=== PATIENT | male | born 1945 | race Caucasian/White ===

== ENCOUNTER 2017-07-10 02:17 | Emergency (ER) | payer OTHER ==
[~2017-07-10] VITALS: Ht 167.6 cm; Wt 82.0 kg
[2017-07-10] MEDS ORDERED: SODIUM CHLORIDE 0.9% 1,000 ML IV ONE (02:56)
[2017-07-10] MEDS ORDERED: MAGNESIUM/ALUMINUM HYDROXIDE/SIMETHICONE 30ML UDC PO STA (02:56)
[2017-07-10] MEDS ORDERED: ONDANSETRON HCL 4MG/2ML VIAL IV STA (02:56)
[2017-07-10] MEDS ORDERED: FAMOTIDINE 20MG/2ML VIAL IV STA (02:56)
[2017-07-10 03:26] LABS: BASOPHILS % 0.4 % (0.0-2.0); EOSINOPHILS % 0.1 % (0.0-5.0); HEMATOCRIT. 44.8 % (42.0-52.0); HEMOGLOBIN. 15.6 g/dL (14.0-18.0); LYMPHOCYTES % 10.7 % (20.0-50.0); MEAN CORPUSCULAR HEMOGLOBIN 31.8 pg (28.0-32.0); MEAN CORPUSCULAR VOLUME 91.5 fL (80.0-94.0); MONOCYTES % 3.6 % (2.0-8.0); NEUTROPHILS % 85.2 % (40.0-76.0); RED CELL DISTRIBUTION WIDTH 13.9 % (11.6-14.6)
[2017-07-10 03:29] LABS: PROTHROMBIN TIME 9.9 sec (9.4-11.6)
[2017-07-10 03:38] LABS: CARBON DIOXIDE 27 mEq/L (21-32); CHLORIDE 100 mEq/L (98-107); TROPONIN I < 0.02 ng/mL (0.00-0.04)
[2017-07-10 03:49] LABS: CLARITY URINE CLEAR (CLEAR); COLOR URINE YELLOW (YELLOW); GLUCOSE URINE NEGATIVE (NEGATIVE); KETONES URINE NEGATIVE (NEGATIVE); LEUKOCYTE ESTERASE URINE TRACE (NEGATIVE); NITRITE URINE NEGATIVE (NEGATIVE); OCCULT BLOOD URINE NEGATIVE (NEGATIVE); PH URINE 6.5 (4.5-8.0); PROTEIN URINE NEGATIVE (NEGATIVE); UROBILINOGEN URINE 0.2 E.U./dL (0.2-1.0)
[2017-07-10 04:04] LABS: MEAN PLATELET VOLUME 10.3 fl (7.4-10.4)
[2017-07-10 04:05] LABS: PLATELET 206 x1000/uL (130-400)
[2017-07-10] MEDS ORDERED: CEFTRIAXONE 1 G PREMIX 50 ML IV ONE (05:45)
[2017-07-10 06:50] VITALS: BP 164/73
== END 2017-07-10 06:59 | disposition home or self-care (01) ==
LOC: ER 02:17
DX: N39.0 Urinary tract infection, site not specified (principal); R10.9 Unspecified abdominal pain; K76.0 Fatty (change of) liver, not elsewhere classified; K80.20 Calculus of gallbladder without cholecystitis without obstruction; I10 Essential (primary) hypertension
CPT/HCPCS: 36415; 71010; 76705; 80053; 81001; 83690; 84484; 85025; 85610; 93005; 96361; 96365; 96375; 99285; J0696; J2405; J3490; J7030

== ENCOUNTER 2017-12-17 11:32 | Inpatient (IN) | payer OTHER ==
[~2017-12-17] VITALS: Ht 167.6 cm; Wt 81.6 kg
[2017-12-17 12:24] LABS: CHLORIDE 103 mEq/L (98-107)
[2017-12-17 12:26] LABS: PROTHROMBIN TIME 10.2 sec (9.4-11.6)
[2017-12-17 12:28] LABS: BASOPHILS % 0.3 % (0.0-2.0); EOSINOPHILS % 0.4 % (0.0-5.0); HEMATOCRIT. 49.1 % (42.0-52.0); HEMOGLOBIN. 16.7 g/dL (14.0-18.0); LYMPHOCYTES % 13.3 % (20.0-50.0); MEAN CORPUSCULAR HEMOGLOBIN 31.4 pg (28.0-32.0); MEAN CORPUSCULAR VOLUME 92.2 fL (80.0-94.0); MEAN PLATELET VOLUME 10.4 fl (7.4-10.4); MONOCYTES % 4.2 % (2.0-8.0); NEUTROPHILS % 81.8 % (40.0-76.0); PLATELET 217 x1000/uL (130-400); RED BLOOD CELL COUNT 5.33 mill/uL (4.7-6.1); RED CELL DISTRIBUTION WIDTH 13.7 % (11.6-14.6)
[2017-12-17] MEDS ORDERED: MORPHINE SULFATE 2 MG/ML CPJ (NOT FOR IM USE) IV ONE (12:30)
[2017-12-17] MEDS ORDERED: ONDANSETRON HCL 4MG/2ML VIAL IV ONE (12:30)
[2017-12-17] MEDS ORDERED: KETOROLAC 30MG/ML VIAL IV ONE (12:30)
[2017-12-17] MEDS ORDERED: SODIUM CHLORIDE 0.9% 1,000 ML IV ONE (12:30)
[2017-12-17] MEDS: MORPHINE SULFATE 4 MG/ML CPJ (NOT FOR IM USE) IV NR ×2 (13:38→13:40)
[2017-12-17] MEDS ORDERED: MORPHINE SULFATE 4 MG/ML CPJ (NOT FOR IM USE) IV NR (15:00)
[2017-12-17] MEDS ORDERED: CLONIDINE 0.2MG TABLET PO NR (15:21)
[2017-12-17] MEDS ORDERED: ONDANSETRON HCL 4MG/2ML VIAL IV PRN (17:15)
[2017-12-17] MEDS ORDERED: HYDRALAZINE 20MG/ML VIAL IV SCH (18:00)
[2017-12-17 18:20] VITALS: BP 144/72
[2017-12-17] MEDS: HYDROMORPHONE HCL/PF 2MG/ML CPJ IV PRN ×2 (18:41→22:07)
[2017-12-17] MEDS ORDERED: BENAZ PO (19:56)
[2017-12-17] MEDS ORDERED: LATANO EACHEYE (19:59)
[2017-12-17] MEDS ORDERED: ASPI-864 PO (19:59)
[2017-12-17 20:00] VITALS: BP 140/71
[2017-12-17] MEDS ORDERED: NITROGLYCERIN 0.4MG/HR PATCH TOP SCH (20:00)
[2017-12-17] MEDS ORDERED: ENOXAPARIN 40MG/0.4ML SYR SUBCUT SCH (20:00)
[2017-12-17] MEDS: PIPERACILLIN/TAZ 3.375G PREMIX 50 ML IV SCH (20:05)
[2017-12-17] MEDS: DEXT 5%/0.45% NACL KCL 20MEQ/L 1,000 ML IV SCH (20:06)
[2017-12-17] MEDS: HYDRALAZINE 10 MG in SODIUM CHLORIDE 0.9% 49.5 ML IV SCH (22:09)
[2017-12-17] MEDS: SODIUM CHLORIDE 0.9% INJ 3ML FLUSH IVF SCH (22:09)
[2017-12-17 23:03] LABS: CLARITY URINE CLOUDY (CLEAR); COLOR URINE DARK YELLOW (YELLOW); KETONES URINE TRACE (NEGATIVE); LEUKOCYTE ESTERASE URINE TRACE (NEGATIVE); NITRITE URINE POSITIVE (NEGATIVE); OCCULT BLOOD URINE NEGATIVE (NEGATIVE); PROTEIN URINE TRACE (NEGATIVE); SPECIFIC GRAVITY URINE 1.016 (1.005-1.030)
[2017-12-18] VITALS: BP 113/60
[2017-12-18] MEDS: HYDROMORPHONE HCL/PF 2MG/ML CPJ IV PRN ×3 (02:11→16:30)
[2017-12-18] MEDS: HYDRALAZINE 10 MG in SODIUM CHLORIDE 0.9% 49.5 ML IV SCH ×3 (02:12→13:50)
[2017-12-18 04:00] VITALS: BP 131/68
[2017-12-18] MEDS: PIPERACILLIN/TAZ 3.375G PREMIX 50 ML IV SCH ×2 (05:11→11:16)
[2017-12-18] MEDS: SODIUM CHLORIDE 0.9% INJ 3ML FLUSH IVF SCH ×2 (05:11→13:50)
[2017-12-18 08:00] VITALS: BP 108/53
[2017-12-18 09:10] LABS: HEMATOCRIT. 49.6 % (42.0-52.0); HEMOGLOBIN. 17.1 g/dL (14.0-18.0); MEAN CORPUSCULAR HEMOGLOBIN 31.8 pg (28.0-32.0); MEAN CORPUSCULAR VOLUME 92.3 fL (80.0-94.0); PLATELET 196 x1000/uL (130-400); RED BLOOD CELL COUNT 5.37 mill/uL (4.7-6.1); RED CELL DISTRIBUTION WIDTH 14.1 % (11.6-14.6)
[2017-12-18 09:36] LABS: CHLORIDE 107 mEq/L (98-107)
[2017-12-18 09:52] LABS: AMYLASE 1189 IU/L (25-115)
[2017-12-18 12:00] VITALS: BP 95/50
[2017-12-18] MEDS: DEXT 5%/0.45% NACL KCL 20MEQ/L 1,000 ML IV SCH (13:49)
[2017-12-18 15:52] LABS: HEPATITIS B SURFACE ANTIGEN NEGATIVE
[2017-12-18 16:00] VITALS: BP 120/77
[2017-12-18 16:21] LABS: HEPATITIS B CORE AB IGM NEGATIVE
[2017-12-18 16:22] LABS: HEPATITIS A AB IGM NEGATIVE (NEGATIVE)
[2017-12-18 17:39] VITALS: BP 105/55
[2017-12-19 02:10] LABS: PLATELET ESTIMATE NORMAL
== END 2017-12-18 18:22 | disposition short-term general hospital (02) | DRG 871 ==
LOC: ER 12:06 → 6EST 15:15 → ENRESERV 17:00 → CANBEDREQ 17:28
PROVIDERS: ADMIT Ophthalmology; ATTEND Ophthalmology
DX: A41.9 Sepsis, unspecified organism (principal); K85.10 Biliary acute pancreatitis without necrosis or infection; N39.0 Urinary tract infection, site not specified; K80.70 Calculus of gallbladder and bile duct without cholecystitis without obstruction; R74.0 Nonspecific elevation of levels of transaminase and lactic acid dehydrogenase [LDH]; I10 Essential (primary) hypertension; Z79.82 Long term (current) use of aspirin; Z79.899 Other long term (current) drug therapy
CPT/HCPCS: 36415; 71045; 74176; 74181; 76705; 80053; 81003; 82150; 83690; 84478; 85025; 85610; 86705; 86709; 86803; 87040; 87086; 87340; J0360; J1170; J1650; J1885; J2270; J2405; J2543; J7030